=== PATIENT | female | born 1950 | race Caucasian/White ===

== ENCOUNTER → 2024-03-07 | Outpatient (CLI) | payer MEDICARE, SELFPAY | END | disposition home or self-care (01) | PROVIDERS: Visit Provider Physician Assistant | DX: N39.0 Urinary tract infection, site not specified (principal) | CPT/HCPCS: 87077; 87086; 87088; 87186 ==

== ENCOUNTER → 2024-07-09 | Outpatient (CLI) | payer MEDICARE, SELFPAY ==
--- NOTE | 2024-07-09 09:24 | BI_ITS ---
PROCEDURE: SCRN MAMM (CAD)W/HANK BILAT REASON FOR EXAM: F, Age 74 y/o, presents for annual screening mammogram. No family history of breast cancer. TECHNIQUE: Bilateral screening digital breast tomosynthesis with 2D and 3D images. Computer aided detection. COMPARISON: 04/19/2023, 04/10/2022. FINDINGS: There are scattered areas of fibroglandular density. No suspicious masses, areas of developing architectural distortion, or suspicious calcifications. BI/SCRN MAMM (CAD)W/HANK BILAT IMPRESSION: There is no mammographic evidence of malignancy in either breast. BI-RADS 1: NEGATIVE. RECOMMEND ANNUAL MAMMOGRAPHIC SCREENING. Follow-up code: Routine Follow-up The patient will be notified of the results by letter. Reading Location: [id number]
--- NOTE | 2024-07-09 09:30 | BD_ITS ---
EXAM: CLINICAL INDICATION: Determine bone density. CLINICAL HISTORY: Postmenopausal COMPARISON: None TECHNIQUE: Bone densitometry of the lumbar spine and hips was performed using the HOLOGIC DEXA scanner. FINDINGS: Bone Density Measurements: SPINE AP Spine (L1-L4): 1.030 g/cm2 T-Score: 0.1 Z-Score: 2.4 WHO Classification: NORMAL LEFT FEMUR Femoral TOTAL (LEFT): 0.989 g/cm2 T-Score: 0.4 Z-Score: 2.1 WHO Classification: NORMAL Femoral NECK (LEFT): 0.764 g/cm2 T-Score: -0.8 Z-Score: 1.2 WHO Classification: NORMAL RIGHT FEMUR Femoral TOTAL (RIGHT): 0.888 g/cm2 T-Score: -0.4 Z-Score: 1.2 WHO Classification: NORMAL Femoral NECK (RIGHT): 0.733 g/cm2 T-Score: -1.0 Z-Score: 0.9 WHO Classification: Normal BD/Dexa Bone Density Study IMPRESSION: Normal bone density World Health Organization criteria for BMD interpretation classify patients as: Normal (T-score at or above -1.0), Osteopenic (T-score between -1.0 and -2.5),or Osteoporotic (T-score at or below -2.5). The presence of vertebral abnormalities such as scoliosis or osteophytes, or ao rtic/ligamentous calcifications can alter readings of the lumbar spine. In such cases, readings of the hips are more reliable. Reading Location: [facility]
== END | disposition home or self-care (01) ==
PROVIDERS: PCP Internal Medicine; Referring Provider Internal Medicine; Visit Provider Internal Medicine
DX: Z12.31 Encounter for screening mammogram for malignant neoplasm of breast (principal); Z78.0 Asymptomatic menopausal state
CPT/HCPCS: 77063; 77067; 77080

== ENCOUNTER → 2024-11-09 | Outpatient (CLI) | payer MEDICARE, SELFPAY ==
--- NOTE | 2024-11-09 07:28 | US_ITS ---
PROCEDURE: AORTA 11/09/2024 REASON FOR EXAM: HX AAA COMPARISON: None FINDINGS: Abdominal aorta measurements: Proximal: 1.5 cm Mid: 1.6 cm Distal: 1.4 cm Iliac arterial measurements at the aortic bifurcation: Right: 0.9 cm Left: 0.9 cm The abdominal aorta has a grossly normal contour. No abdominal aortic aneurysm is identified. US/Aorta IMPRESSION: NORMAL ULTRASOUND OF THE ABDOMINAL AORTA. NO ANEURYSM. Reading Location: [id number]
--- OUTSIDE RECORDS SUMMARY | 2024-11-09 07:29 | XMS RPT_ITS | CCD ---
Author Organization [facility] Care Team Providers Care Inventory Accountant Name Role Phone Jaylene Zhang Referring Unavailable Jaylene Zhang Primary Care Unavailable Jaylene Zhang Attending Unavailable Daniel BERRIOS, Marky Attending Unavailable Daniel BERRIOS, Marky Attending Unavailable Problems Active Problems Problem Classification Problem Date Documented Da te Episodic/Chronic Other screening for suspected conditions (not mental disorders or infectious disease) (1 source) Encounter for screening mammogram for malignant neoplasm of breast; Translations: [Encounter for screening mammogram for malignant neoplasm of breast] Onset: 07-22-2024 Episodic Past or Other Problems Problem Classification Problem Date Documented Da te Episodic/Chronic Genitourinary symptoms and ill-defined conditions (1 source) Dysuria; Translations: [Dysuria] Onset: 03-07-2024 Episodic Urinary tract infections (1 source) Urinary tract infection, site not specified; Translations: [Urinary tract infection, site not specified] Onset: 03-29-2024 Episodic Results Test Name Value Interpretation Reference Range Facil ity Dexa Bone Density Studyon Dexa Bone Density Study [facility] Imaging Services [address] [place] [id number] Dexa Bone Density Study MR#: [id number] Acct: [id number] Name: KIMBERLYKRISTAJAYLENE AUGUST Rep #: [id number] : 1950 F 74 From: Lauri Cisneros MD PCP: Dr. Jaylene Zhang DO Status: REG CLI Study: Dexa Bone Density Study Date of Exam: 07/09/24 Exam# [id number] Ordering Dr: Jaylene Zhang DO EXAM: CLINICAL INDICATION: Determine bone density. CLINICAL HISTORY: Postmenopausal COMPARISON: None TECHNIQUE: Bone densitometry of the lumbar spine and hips was performed using the sendwithus DEXA scanner. FINDINGS: Bone Density Measurements: SPINE AP Spine (L1-L4): 1.030 g/cm2 T-Score: 0.1 Z-Score: 2.4 WHO Classification: NORMAL LEFT FEMUR Femoral TOTAL (LEFT): 0.989 g/cm2 T-Score: 0.4 Z-Score: 2.1 WHO Classification: NORMAL Femoral NECK (LEFT): 0.764 g/cm2 T-Score: -0.8 Z-Score: 1.2 WHO Classification: NORMAL RIGHT FEMUR Femoral TOTAL (RIGHT): 0.888 g/cm2 T-Score: -0.4 Z-Score: 1.2 WHO Classification: NORMAL Femoral NECK (RIGHT): 0.733 g/cm2 T-Score: -1.0 Z-Score: 0.9 WHO Classification: Normal BD/Dexa Bone Density Study IMPRESSION: Normal bone density World Health Organization criteria for BMD interpretation classify patients as: Normal (T-score at or above -1.0), Osteopenic (T-score between -1.0 and -2.5),or Osteoporotic (T-score at or below -2.5). The presence of vertebral abnormalities such as scoliosis or osteophytes, or aortic/ligamentous calcifications can alter readings of the lumbar spine. In such cases, readings of the hips are more reliable. Reading Location: [facility] CC: Dr. Jaylene Zhang DO Vendor Quality Supervisor: Signed Normal [facility] SCRN MAMM (CAD)W/HANK BILATo n 07-09-2024 SCRN MAMM (CAD)W/HANK BILAT [facility] Imaging Services [address] [place] [address] SCRN MAMM (CAD)W/HANK BILAT MR#: [id number] Acct: [id number] Name: JAYLENE HARRIS Rep #: [id number] : 1950 F 74 From: Yaneth Sanders MD PCP: Dr. Jaylene Zhang DO Status: REG CLI Study: SCRN MAMM (CAD)W/HANK BILAT Date of Exam: 06/22 01/13 Exam# [id number] Ordering Dr: Jaylene Zhang DO PROCEDURE: SCRN MAMM (CAD)W/HANK BILAT REASON FOR EXAM: F, Age 74 y/o, presents for annual screening mammogram. No family history of breast cancer. TECHNIQUE: Bilateral screening digital breast tomosynthesis with 2D and 3D images. Computer aided detection. COMPARISON: 04/19/2023, 04/10/2022. FINDINGS: There are scattered areas of fibroglandular density. No suspicious masses, areas of developing architectural distortion, or suspicious calcifications. BI/SCRN MAMM (CAD)W/HANK BILAT IMPRESSION: There is no mammographic evidence of malignancy in either breast. BI-RADS 1: NEGATIVE. RECOMMEND ANNUAL MAMMOGRAPHIC SCREENING. Follow-up code: Routine Follow-up The patient will be notified of the results by letter. Reading Location: [facility] CC: Dr. Jaylene Zhang DO Vendor Quality Supervisor: Signed Normal [facility] Urine Cultureon 03-09-2024 [facility] Escherichia coli [place] Count 11,000-25,000 Proteus mirabilis Proteus mirabilis Escherichia coli: REACTION Ampicillin Islt ELICEO >=32 R Ampicillin+Sulbac Islt ELICEO 16 ceFAZolin Islt ELICEO <=4 S Cefepime Islt ELICEO <=0.12 S cefTRIAXone Islt ELICEO <=0.25 S Ciprofloxacin Islt ELICEO <=0.25 S B-Lactamase Extended Susc Islt NEG Gentamicin Islt ELICEO <=1 S Imipenem Islt ELICEO <=0.25 S levoFLOXacin Islt ELICEO <=0.12 S Nitrofurantoin Islt ELICEO <=16 S Pip+Tazo Islt ELICEO <=4 S Tobramycin Islt ELICEO <=1 S TMP SMX Islt ELICEO <=20 S Proteus mirabilis: REACTION Ampicillin Islt ELICEO <=2 S Ampicillin+Sulbac Islt ELICEO <=2 ceFAZolin Islt ELICEO <=4 S Cefepime Islt ELICEO <=0.12 S cefTRIAXone Islt ELICEO <=0.25 S Ciprofloxacin Islt ELICEO <=0.25 S Gentamicin Islt ELICEO <=1 S levoFLOXacin Islt ELICEO <=0.12 S Nitrofurantoin Islt ELICEO R Pip+Tazo Islt ELICEO <=4 S Tobramycin Islt ELICEO <=1 S TMP SMX Islt ELICEO <=20 S Normal [facility] Comment on above: Performed By: #### [id number] #### [facility] [address], [place], [address] Office Visit Reporton 2023 Office Visit Report [facility] [address] [place] [address] OFFICE VISIT Date of Service: 03/07/24 MR#: [id number] Acct: [id number] Patient: JAYLENE HARRIS Rep #: [id number] : 1950 Provider: AGUSTINA Shen Age/Sex: 74/F Location: [facility] Status: Signed Intake Intake Visit Reasons: Urinary tract infection Chief Complaint: dysuria, flank pain [place] Picker Required: No Is patient in pain?: Yes Allergies No Known Allergies Allergy (Verified 03/07/24 10:17) Medications ???Medication ???Instructions ???Recorded ???Confirmed ???Type amlodipine 10 mg tablet 10 mg PO QDAY 03/07/24 03/07/24 History levothyroxine 75 mcg tablet mcg PO 03/07/24 03/07/24 History linaclotide 72 mcg capsule 72 mcg PO QAM 03/07/24 03/07/24 History (Linzess) lisinopril 40 mg tablet 40 mg PO QDAY 03/07/24 03/07/24 History nitrofurantoin macrocrystal 100 mg 100 mg PO Q12H #10 caps 03/07/24 03/07/24 Rx capsule rosuvastatin 10 mg tablet 10 mg PO QHS 03/07/24 03/07/24 History sertraline 100 mg tablet 100 mg PO QDAY 03/07/24 03/07/24 History zolpidem 10 mg tablet 10 mg PO QHS PRN 03/07/24 03/07/24 History Is last menstrual period known: No Post menopausal: Yes Patient : No Have you fallen in the past year?: No Nurse's Note: dysuria, bilateral flankl pain x 3 days. denies abd pain, fever. concern for UTI [facility] Medical History HTN (hypertension) Diabetes Hypothyroidism Hemorrhoids Surgical History History of hemorrhoidectomy History of hysterectomy History of cholecystectomy Family History (Updated 03/07/24 @ 10:11 by Sonali Braga) Other Cancer Hypertension Social History (Updated 03/07/24 @ 10:11 by Sonali Braga) Smoking Status: Never smoker alcohol intake: never substance use type: does not use HPI HPI Chief Complaint: dysuria, flank pain Details: JAYLENE HARRIS, is a 74 F who presents to the office today for dysuria. Symptoms began 3-4 days ago. She has burning with urination, urgency, frequency, hematuria, and pressure. She has taken some azo and cranberry supplements with minimal relief. No fever/chills, no flank pain. No recent abx use. ROS Const Constitutional: No chills, fatigue or fever(s) Genitourinary-Female: Positive for burning urination, painful urination, urinary frequency, urinary urgency and blood in urine; No side pain Endo Endocrine: No fatigue Exam Const General: cooperative, healthy appearing, comfortable, no acute distress, well developed and well groomed Nutritional Appearance: average body habitus and well nourished Orientation: alert, awake and oriented x3 HENMT Head: normocephalic and atraumatic Resp Effort Inspection: normal respiratory effort, able to speak in complete sentences, symmetric chest movement and not labored Auscultation: Bilateral: Clear to Auscultation Cardio Rate: regular rate Rhythm: regular rhythm Heart Sounds: no murmurs Musc Other: no cva tednerness Results POC Urinalysis Dip (Clinic) Office Urine Color Yellow Last Edit by Sonali Braga on 03/07/24 10:23 Office Urine Clarity Cloudy Last Edit by Sonali Braga on 03/07/24 10:23 Office Urine Glucose Negative Last Edit by Sonali Braga on 03/07/24 10:23 Office Urine Ketones Negative Last Edit by Sonali Braga on 03/07/24 10:23 Off Ur Spec Cameron 1.005 Last Edit by Sonali Braga on 03/07/24 10:23 Office Urine pH 5.0 Last Edit by Sonali Braga on 03/07/24 10:23 Office Urine Bilirubin Negative Last Edit by Sonali Braga on 03/07/24 10:23 Office Urine Urobilinogen Negative Last Edit by Sonali Braga on 03/07/24 10:23 Office Urine Blood Large Last Edit by Sonali Braga on 03/07/24 10:23 Office Urine Blood Hemolyzed NA Last Edit by Sonali Braga on 03/07/24 10:23 Office Urine Protein Trace Last Edit by Sonali Braga on 03/07/24 10:23 Office Urine Nitrate Negative Last Edit by Sonali Braga on 03/07/24 10:23 Off Ur Leukocytes Positive Last Edit by Sonali Braga on 03/07/24 10:23 Coding Level of Care Code Off vis,new,level 3 Diagnoses Urinary tract infection N39.0 Assessment and Plan Assessment and Plan (1) Urinary tract infection: Status: Acute Plan: Symptoms and urine dip c/w uti. start nitrofurantoin x 5 days. send off urine for c s, will follow. Orders: Orders POC Urinalysis Dip (Clinic) Today R30.0 - Dysuria Culture, Urine Today N39.0 - Urinary tract infection, site not specified Medications: New nitrofurantoin macrocrystal must administer with a meal/food 100 mg PO Q12H 10 caps 0RF Clinical Quality Measures Falls Risk Screening/Assistive Devices Have you fallen in the past year?: No 03/07/24 1047 Date (more content not included)... Normal [facility] Encounters Encounter Date Encounter Type Care Provider Facility Start: 07-09-2024 End: 07-09-2024 ambulatory Jaylenejavi Zhang Facility:[facility] Start: 03-07-2024 End: 03-07-2024 ambulatory Marky BERRIOS Facility:[facility] Start: 03-07-2024 End: 03-07-2024 ambulatory Marky BERRIOS Facility:[facility] Payers Date Payer Category Payer Medicare [id number] 2024 Self-pay Unknown [id number] Unknown [id number] Unknown [id number] Summary Purpose Family History No Family History Records Found Advance Directives No Advanced Directives Records Found Additional Source Comments INFORMATION SOURCE (unrecogn ized section and content) DATE CREATED AUTHOR 07/24/2024 [facility] FOR RECORDS PERTAINING TO PATIENTS WHO ARE OR HAVE BEEN ENROLLED IN A CHEMICAL DEPENDENCY/SUBSTANCEABUSE PROGRAM, SOME INFORMATION MAY BE OMITTED. This clinical summary was aggregated from multiple sources. Caution should be exercised in using it in the provision of clinical care. This summary normalizes information from multiple sources, and as a consequence, information in this document may materially change the coding, format and clinical context of patient data. In addition, data may be omitted in some cases. CLINICAL DECISIONS SHOULD BE BASED ON THE PRIMARY CLINICAL RECORDS. [employer] provides no warranty or guarantee of the accuracy or completeness of information in this document.
== END | disposition home or self-care (01) ==
LOC: US 07:27
PROVIDERS: PCP Internal Medicine; Referring Provider Internal Medicine; Visit Provider Internal Medicine
DX: Z86.79 Personal history of other diseases of the circulatory system (principal); Z82.49 Family history of ischemic heart disease and other diseases of the circulatory system
CPT/HCPCS: 76775

== ENCOUNTER → 2025-02-27 | Outpatient (CLI) | payer MEDICARE, SELFPAY | END | disposition home or self-care (01) | LOC: LABSPEC 10:06 | PROVIDERS: PCP Internal Medicine; Referring Provider Internal Medicine; Visit Provider Internal Medicine | DX: L02.91 Cutaneous abscess, unspecified (principal) | CPT/HCPCS: 87070; 87075; 87077; 87186; 87205 ==